=== PATIENT | male | born 1970 | race Hispanic/Latino ===

== ENCOUNTER 2016-12-13 16:31 | Emergency (ER) | payer BC ==
[2016-12-13 16:37] VITALS: BMI 25.0
--- NOTE | 2016-12-13 17:40 | C.PDOC ---
History Of Present Illness 46 yr old male, hx of Right eye legally blind, presents to the ER for evaluation of left lower lid redness and pain noted since yesterday. Patient states he was exposed to some dust prior to the onset of current sx. Patient denies known trauma or injury, vision changes, blurry vision, eye discharge, headache, dizziness, pain or limitation on extraocular movement, nausea, vomiting, or any other active complaints. Time Seen by Provider: 12/13/16 16:41 Chief Complaint (Nursing): Eye Problem History Per: Patient History/Exam Limitations: no limitations Onset/Duration Of Symptoms: Days (1) Current Symptoms Are (Timing): Still Present Associated Symptoms: denies: Pain, Decreased Vision, Discharge From Eye Past Medical History Reviewed: Historical Data, Nursing Documentation, Vital Signs Vital Signs: Last Vital Signs Temp 98.6 F 12/13/16 17:42 Pulse 57 L 12/13/16 17:46 Resp 18 12/13/16 17:46 BP 119/78 12/13/16 17:42 Pulse Ox 99 12/13/16 17:46 Surgical History: Appendectomy Family History: States: No Known Family Hx - Social History Hx Alcohol Use: Yes Hx Substance Use: No - Immunization History Hx Tetanus Toxoid Vaccination: No Hx Influenza Vaccination: Yes Hx Pneumococcal Vaccination: No Review Of Systems Except As Marked, All Systems Reviewed And Found Negative. Eyes: Positive for: Redness (Left eye and lower lid ). Negative for: Vision Change Gastrointestinal: Negative for: Nausea, Vomiting Neurological: Negative for: Weakness, Numbness, Headache, Dizziness Physical Exam - Physical Exam Appears: Well, Non-toxic, No Acute Distress Skin: Normal Color, Warm, Dry Head: Atraumatic, Normacephalic Eye(s): bilateral: PERRL, EOMI (no pain or limitation on extraocular movement B/ L), left: Other (Mild erythema to the inner lateral lower left eyelid, no discharge, no periorbital edema or erythema.) Nose: Normal Oral Mucosa: Moist Throat: Normal, No Erythema, No Exudate Neck: Normal, Normal ROM, Supple Extremity: Normal ROM, No Swelling Neurological/Psych: Oriented x3, Normal Speech ED Course And Treatment O2 Sat by Pulse Oximetry: 99 Pulse Ox Interpretation: Normal Progress Note: On re-evaluation, pt is afebrile, hemodynamicaly stable. NOn- toxic. Tolerate Po well in ED. PulsEOx 99% RA. Eyes: left eye exam c/w conjunctivitis. No periorbital edema or erythema. VA: Left eye 20/25 w/glasses , Right eye- legally blind. ENT: no acute findings. neck: (-) meningeals ign. Lungs: CTA B/L, BS equal B/L. Imaging review- normal study. Pt has clinical findings c/w URI sx, pt advised on course of ds. ref. to f/u with PMD in 2-3 days for re-evaluation. Return to ED if nay worsening or new changes. Disposition Counseled Patient/Family Regarding: Diagnosis, Need For Followup, Rx Given - Disposition Referrals: Clinic,Med Surg [Primary Care Provider] - Abelardo Fletcher MD [Staff Provider] - Disposition: HOME/ ROUTINE Disposition Time: 17:36 Condition: STABLE Additional Instructions: Take medication as prescribed Follow up with Ophthalmology in 2-3 days fpr re-evaluation. Return to ED if any worsening or new changes. Prescriptions: Neomycin/Polymyxin/Dexamethaso [Dexamethasone/Neomycin/Polymyxin 5 Ml] 2 drop LEFTEYE Q4 #1 bottle Instructions: Conjunctivitis (ED) - Clinical Impression Clinical Impression: Conjunctivitis - PA / [employer] / Resident Statement MD/DO has reviewed & agrees with the documentation as recorded. - Scribe Statement The provider has reviewed the documentation as recorded by the Scribe Daisy Sena All medical record entries made by the Scribe were at my direction and personally dictated by me. I have reviewed the chart and agree that the record accurately reflects my personal performance of the history, physical exam, medical decision making, and the department course for this patient. I have also personally directed, reviewed, and agree with the discharge instructions and disposition.
[2016-12-13 17:43] VITALS: BP 119/78; RESP 18; TEMP 98.6
[2016-12-13 17:46] VITALS: PULSE 57; O2SAT 99
== END 2016-12-13 17:47 | disposition home or self-care (01) ==
LOC: SUPCPDRO 16:31 → C.ER 16:31
DX: H10.9 Unspecified conjunctivitis (principal)